=== PATIENT | female | born 1945 | race Caucasian/White ===

== ENCOUNTER → 2016-11-30 | Outpatient (CLI) | payer MEDICARE ==
[~2016-11-30] MED LIST: ALEN70 PO; LORA-392 PO; OMEP20CA5 PO
[2016-11-30 16:38] LABS: FREE T4 1.35 NG/DL (0.76-1.46)
== END ==
LOC: CLAB 15:49
PROVIDERS: ATTEND Internal Medicine Cardiovascular Disease
DX: R00.2 Palpitations (principal); R06.00 Dyspnea, unspecified
CPT/HCPCS: 36415; 84439; 84443